=== PATIENT | male | born 1970 | race Caucasian/White ===

== ENCOUNTER 2017-08-06 15:16 | Emergency (ER) | payer OTHER ==
[2017-08-06 15:31] VITALS: BP 135/73; PULSE 92; RESP 18; TEMP 98.7
--- NOTE | 2017-08-06 16:06 | ED ---
General Adult HPI - General Chief complaint: ENT Stated complaint: inner ear issues Time Seen by Provider: 08/06/17 15:42 Source: patient, RN notes reviewed Mode of arrival: ambulatory Limitations: no limitations - History of Present Illness Initial comments: Patient 46-year-old male presenting to the emergency room today with a chief complaint of a noise and discomfort to the left ear. Patient states that started back in March. He states that he's noticed that when he is around other small noises doesn't seem to cause irritation to the left side. He states he can hear a "searing" type white noise in the left ear that has been somewhat constant and seems to be getting worse over the last several months. He does admit that he did see a family practitioner who had a hearing test ordered and performed. He states that he tested well with this. He was supposed follow-up with ENT but never received a phone call. 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 Patient admits to some sinus congestion. He denies any other complaints or symptoms. Patient admits that in the past he did work around a lot of live music. Patient denies any recent fever, chills, shortness of breath, chest pain , back pain, abdominal pain, nausea or vomiting, numbness or tingling, dysuria or hematuria, constipation or diarrhea, headaches or visual changes, or any other complaints. - Related Data Home Medications Medication Instructions Recorded Confirmed No Known Home Medications [No 08/06/17 08/06/17 Known Home Medications] Allergies Allergy/AdvReac Type Severity Reaction Status Date / Time No Known Allergies Allergy Verified 08/06/17 15:44 Review of Systems ROS Statement: Those systems with pertinent positive or pertinent negative responses have been documented in the HPI. ROS Other: All systems not noted in ROS Statement are negative. Past Medical History Past Medical History: No Reported History History of Any Multi-Drug Resistant Organisms: None Reported Past Surgical History: No Surgical Hx Reported Past Psychological History: No Psychological Hx Reported Smoking Status: Current every day smoker Past Alcohol Use History: Occasional Past Drug Use History: Marijuana General Exam - General Exam Comments Initial Comments: General: The patient is awake and alert, in no distress, and does not appear acutely ill. Eye: Pupils are equal, round and reactive to light, extra-ocular movements are intact. No nystagmus. There is normal conjunctiva bilaterally. No signs of icterus. Ears, nose, mouth and throat: There are moist mucous membranes and no oral lesions. TMs clear bilaterally. No tenderness on palpation to the left or right ear. Mild tenderness to the left maxillary sinus. Neck: The neck is supple, there is no tenderness or JVD. Musculoskeletal: Normal ROM, no tenderness. Strength 5/5. Sensation intact. Pulses equal bilaterally 2+. Neurological: A&O x 3. CN II-XII intact, There are no obvious motor or sensory deficits. Coordination appears grossly intact. Speech is normal. Skin: Skin is warm and dry and no rashes or lesions are noted. Psychiatric: Cooperative, appropriate mood & affect, normal judgment. Limitations: no limitations Course Vital Signs 08/06/17 15:28 Temperature 98.7 F Pulse Rate 92 Respiratory 18 Rate Blood Pressure 135/73 O2 Sat by Pulse 98 Oximetry Medical Decision Making - Medical Decision Making Patient will be given information to follow up with ENT. Patient advised that he may try a decongestant to see if it helps with any other symptoms. Advised to return to emergency room if any symptoms worsen or for any other concerns. Disposition Clinical Impression: Tinnitus of left ear Disposition: HOME SELF-CARE Condition: Good Instructions: Tinnitus (ED) Additional Instructions: Please try a decongestant of Sudafed as discussed to see if it helps with her symptoms. Please follow-up with ENT over the next 2 days returning here to emergency room if any symptoms increase or worsen. Is patient prescribed a controlled substance at d/c from ED?: No Referrals: None,Stated [Primary Care Provider] - 1-2 days Richie Jernigan MD [STAFF PHYSICIAN] - 1-2 days Gume Shafer DO [STAFF PHYSICIAN] - 1-2 days Time of Disposition: 16:06
== END 2017-08-06 16:15 | disposition home or self-care (01) ==
LOC: EC 15:16
DX: H93.12 Tinnitus, left ear (principal); R09.81 Nasal congestion; F17.200 Nicotine dependence, unspecified, uncomplicated
CPT/HCPCS: 99283